=== PATIENT | female | born 1970 | race Caucasian/White ===

== ENCOUNTER 2017-01-16 15:50 | Emergency (ER) | payer OTHER ==
[2017-01-16 16:05] VITALS: BP 139/84; PULSE 104; RESP 18; TEMP 98.9; O2SAT 98
--- NOTE | 2017-01-16 16:16 | PD ---
Physical Exam Date Seen by Provider: Jan 16, 2017 Time Seen by Provider: 16:13 Narrative 46 YOWF C/O BACK PAIN WORSE SATURDAY. SENT FROM PAIN MANAGEMENT BY EMS FOR [facility]. PT AND MOTRIN FOR PAIN DM2 AND HTN. TRAMADOL MADE HER LOOPY. NOT TAKING IT VS REVIEWED WAITING FOR BED PLACEMENT Data Data Last Documented VS Vital Signs Date Time Temp Pulse Resp B/P Pulse Ox O2 Delivery O2 Flow Rate FiO2 01/16/17 16:05 98.9 104 18 139/84 98 Room Air MDM Supervised Visit with ALFA: Stuart Ferrell Jan 16, 2017 16:16
[2017-01-16] MEDS ORDERED: HYDR-3533 PO ×2 (17:10→17:15)
[2017-01-16] MEDS ORDERED: DICL75TA PO ×2 (17:10→17:15)
[2017-01-16] MEDS ORDERED: ROBA750T PO ×2 (17:10→17:15)
[2017-01-16] MEDS ORDERED: PROMETHAZINE INJ 25 MG/ML VIAL IM ONE (17:15)
[2017-01-16] MEDS ORDERED: HYDROmorphone HCL PF 1 MG/ML VIAL IM ONE (17:15)
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
[2017-01-16] MEDS ORDERED: ONDANSETRON HCL 4 MG/2 ML VIAL IVP ONE (18:30)
[2017-01-16] MEDS ORDERED: SODIUM CHLORIDE 0.9% FLUSH 10 ML FLUSH IV FLUSH PRN (18:30)
[2017-01-16 18:44] VITALS: O2SAT 97
[2017-01-16 19:11] LABS: AUTOMATED NEUTROPHIL # 4.8 TH/MM3 (1.8-7.7); BASOPHIL # 0.1 TH/MM3 (0-0.2); BASOPHIL % 0.8 % (0.0-2.0); EOSINOPHIL # 0.6 TH/MM3 (0-0.4); EOSINOPHIL % 7.1 % (0.0-4.0); HEMATOCRIT 38.4 % (35.0-46.0); HEMO FLAGS DIFF FINAL; LYMPH % 28.5 % (9.0-44.0); LYMPHOCYTE # 2.4 TH/MM3 (1.0-4.8); MEAN CELL VOLUME 85.7 FL (80.0-100.0); MEAN CORPUSCULAR HEMOGLOBIN 30.1 PG (27.0-34.0); MEAN CORPUSCULAR HGB CONC 35.1 % (32.0-36.0); MONO % 6.1 % (0.0-8.0); NEUT % 57.5 % (16.0-70.0); PLATELET COUNT 217 TH/MM3 (150-450); RED BLOOD COUNT 4.48 MIL/MM3 (4.00-5.30); RED CELL DISTRIBUTION WIDTH 13.5 % (11.6-17.2); WHITE BLOOD COUNT 8.3 TH/MM3 (4.0-11.0)
[2017-01-16 19:23] LABS: POTASSIUM 3.8 MEQ/L (3.5-5.1)
[2017-01-16 19:28] VITALS: BP 124/70; PULSE 94; RESP 18; O2SAT 99
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
[2017-01-16] MEDS ORDERED: HYDROmorphone HCL PF 1 MG/ML VIAL IV PUSH ONE (21:45)
[2017-01-16] MEDS ORDERED: PERC5TAB12 PO (21:48)
== END 2017-01-16 22:24 | disposition home or self-care (01) ==
LOC: NEPD 15:50
DX: M54.9 Dorsalgia, unspecified (principal); M51.26 Other intervertebral disc displacement, lumbar region; M50.223 Other cervical disc displacement at C6-C7 level
CPT/HCPCS: 72141; 72146; 72148; 80048; 85025; 96372; 96374; 96375; 96376; 99285; J1170; J2405; J2550